=== PATIENT | male | born 1960 | race Asian ===

== ENCOUNTER → 2017-11-08 | Outpatient (CLI) | payer BC ==
--- NOTE | 2017-11-08 20:44 | MR ---
EXAMINATION TYPE: MR brain and iac wo/w con DATE OF EXAM: 11/08/2017 COMPARISON: NONE HISTORY: Per , He would like Dr. Reed to Review his case. Rt. Hemifacial Spasms, Mild BiLa teral Hearing Loss, Gadavist 8.5 ml TECHNIQUE: Exam limited by motion artifact. Multiplanar, multisequence images of the brain and brainstem is performed without and with IV contras t, utilizing 8.5 mL intravenous Gadavist . FINDINGS: Diffusion weighted images demonstrate no evidence of a recent infarct or other diffusion ab normality. There is no evidence of cerebellopontine angle mass. No abnormal enhancement of the nerve complex. There is a prominent vascular structure along the left cerebellopontine angle. Suggestion of possible contiguously with the posterior cerebral artery and drainage into the dural venous sinus. This is be st seen on postcontrast axial image 11 and coronal image 21 Additionally there is mild prominence at the origin of the left posterior communicating artery. Changes of chronic sinusitis noted. Midline structures demonstrate normal morphology. The craniocerv ical junction appears within normal limits. IMPRESSION: 1. No evidence of cerebellopontine angle mass or acoustic schwannoma. 2. Along the left CPA angle there is a prominent vascular structure which appears to extend and empty ing into the dural venous sinus. Axial and coronal images suggest this may be arterial recommend a MR A of the [place] and MRV to exclude dural arteriovenous fistula. 3. The origin of the left posterior communicating artery is also slightly prominent also be correlate d with MRA [place].
== END | disposition home or self-care (01) ==
LOC: RADMRIMAIN 18:41
PROVIDERS: ATTEND Psychiatry & Neurology Neurology
DX: R90.89 Other abnormal findings on diagnostic imaging of central nervous system (principal); G51.3 Clonic hemifacial spasm; H91.90 Unspecified hearing loss, unspecified ear; D33.3 Benign neoplasm of cranial nerves
CPT/HCPCS: 70553; A9581

== ENCOUNTER → 2017-11-12 | Outpatient (CLI) | payer BC ==
--- NOTE | 2017-11-12 21:19 | MR ---
EXAMINATION TYPE: MR angio head wo/w con DATE OF EXAM: 11/12/2017 COMPARISON: MRI of the brain dated 11/08/2017 HISTORY: Poss AV fistula seen on MRI, MRA head w/wo recommended. Rule out the right-sided AICA syndro me. TECHNIQUE: Time of flight images focusing on the [place] were performed utilizing 8 mL intra venous Gadavist gadolinium contrast. FINDINGS: There is prominent tubular vascular structure extending from the superior left petrosal sinus/vein to the left posterior communicating artery felt to reflect arteriovenous fistula. This can be seen best on the axial images 86 through 106. There is prominence of the left transverse sinus, sigmoid sinus and left internal jugular vein. Correlate clinically and confirmation could be made with a convention al angiography. Internal carotid arteries and their major tributaries are patent. I do not see evidence for sizable a neurysm. I do not see evidence for anterior inferior cerebellar artery loop or aneurysm to suggest AI CA syndrome. The cavernous sinus appears unremarkable. IMPRESSION: 1. 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 2. No evidence for Aneurysm or AICA syndrome.
== END | disposition home or self-care (01) ==
LOC: RADMRIMAIN 14:19
PROVIDERS: ATTEND Psychiatry & Neurology Neurology
DX: R90.89 Other abnormal findings on diagnostic imaging of central nervous system (principal)
CPT/HCPCS: 70546; A9581

== ENCOUNTER → 2019-10-26 | Outpatient (CLI) | payer BC | END | disposition home or self-care (01) | LOC: LABWHC1 09:00 | PROVIDERS: ATTEND Internal Medicine Cardiovascular Disease | DX: U07.1 COVID-19 (principal) | CPT/HCPCS: 87635 ==

== ENCOUNTER → 2020-04-30 | Outpatient (CLI) | payer BC | END | disposition home or self-care (01) | LOC: LABWHC1 15:24 | PROVIDERS: ATTEND Internal Medicine Interventional Cardiology | DX: E03.9 Hypothyroidism, unspecified (principal); E78.5 Hyperlipidemia, unspecified | CPT/HCPCS: 87070; U0003; C9803 ==